=== PATIENT | female | born 1955 | race Caucasian/White ===

== ENCOUNTER 2019-01-02 15:50 | Emergency (ER) | payer BC ==
[~2019-01-02 15:50] MED LIST: AMOX1TAB63 PO; ASPI-655 PO; ATOR20TA PO; CEPH-350 PO; CLOP75TA PO; ESOM40CA PO; ESTR0.3T PO; FAMO-75 PO; LEFL20TA PO; LEVO88TA5 PO; LISI10TA2 PO; METO50TA4 PO; ONDA4TAB10 PO; PRED2.5T PO; TICA90TA PO; TOCI162S SQ; VENL150C PO; VENL150C6 PO; [UNRECOGNIZED DRUG - CODE] PO; [UNRECOGNIZED DRUG - CODE] PO
--- NOTE | 2019-01-02 15:50 | NUR ---
VS PLACED PATIENT ON ER MONITOR MONITOR AND UNABLE TO OBTAINE VITAL SIGNS BECAUSE PATIENT WILL NOT HOLD STILL AND KEEPS YELLING AND SCREAMING.
[2019-01-02] MEDS ORDERED: MORPHINE SULFATE ONE (16:21)
[2019-01-02] MEDS ORDERED: MORPHINE SULFATE IV ONE (16:30)
--- NOTE | 2019-01-02 16:30 | NUR ---
UPDATE PATIENT CONTINUES TO YELL AND SCREAM AND WILL NOT HOLD STILL. DIFFICULT TO OBTAIN INFORMATION FROM PATIENT.
[2019-01-02 16:37] LABS: BASOPHIL % 0.1 % (0.0-0.2); LYMPHOCYTES # 0.9 10^3/uL (1.0-4.8); LYMPHOCYTES % 5.5 % (24.0-44.0); MEAN CORP HGB 32.6 pg (26-34); MONOCYTES # 0.4 10^3/uL (0.3-0.8); MONOCYTES % 2.6 % (5.0-12.0); NEUTROPHILS % 91.5 % (41.0-85.0); RED CELL DISTRIBUTION WIDTH 17.8 % (11.5-14.5)
[2019-01-02 16:50] VITALS: BP 140/62
[2019-01-02 16:52] LABS: CALCIUM 11.4 mg/dL (8.4-10.5); CARBON DIOXIDE 22.9 mmol/L (20.0-32)
--- NOTE | 2019-01-02 17:00 | NUR ---
UPDATE DR. BALDWIN CALLED TO TALK WITH PCP DR. BOONE PER PATIENT REQUEST.
[2019-01-02 17:50] VITALS: BP 125/65
[2019-01-02 18:20] VITALS: BP 121/55
--- NOTE | 2019-01-02 18:45 | NUR ---
DR CARLOS GONZALEZ TO BEDSIDE BRIEFLY
--- NOTE | 2019-01-02 19:24 | NUR ---
RAD PT BACK FROM CT
--- NOTE | 2019-01-02 19:29 | ER.PDOC ---
General Chief Complaint: Requesting Medical Care Stated Complaint: AMS Time seen by MD: 20:35 Source: patient, family Exam Limitations: no limitations History of Present Illness Initial Comments Pt's spouse called EMS for altered mental status, has been "incoherent" for the last 2 days. Pt has been up and eating some, but has been mumbling. Seen by PMD a few days ago and had Morphine dose increased for back/leg pain. Pt was given Narcan and immediately became alert and began crying, c/o pain in back and legs. Character of AMS: other Usually: orientedx3 Associated Symptoms: back pain Prior symptoms/Treatment: Similar symptoms previous (back pain for months/years), Recenly Seen, Treated by Doctor Allergies: Coded Allergies: iodine (Verified Allergy, Unknown, FLUSH AND BREAK OUT, 11/20/16) PT WAS TOLD THAT IT WAS A NATURAL RESPONE Home Meds Active Scripts Ticagrelor (BRILINTA) 90 Mg Tablet, 90 MG PO BID for PCI, #180 TABLET 3 Refills Prov:EDUARDA BARAJAS NP 11/22/16 Metoprolol Succinate (TOPROL XL) 50 Mg Tab.er.24h, 50 MG PO DAILY, #30 3 Refills Prov:MURIEL HERRING MD 09/10/15 Atorvastatin 20MG (LIPITOR 20MG) 20 Mg Tablet, 40 MG PO HS, #30 TABLET 3 Refills Prov:MURIEL HERRING MD 09/10/15 Reported Medications Tocilizumab (Actemra) 162 Mg/0.9 Ml Syringe, 162 MG SQ Q7D, SYRINGE 11/20/16 Amoxicillin/Potassium Clav (AUGMENTIN 875-125 TABLET) 1 Each Tablet, 1 TAB PO BID, #14 TAB 11/20/16 Venlafaxine Hcl (EFFEXOR XR) 150 Mg Cap.er.24h, 1 CAP PO DAILY, #30 CAP 1 Refill 01/16/16 Ondansetron (ZOFRAN ODT) 4 Mg Tab.rapdis, 4 MG PO Q4HR PRN for NAUSEA AND VOMITING 01/15/16 Hydrocodone Bit/Acetaminophen (HYDROCODON-ACETAMINOPH 7.5-300) 1 Each Tablet, 1 EACH PO Q4HR PRN for PAIN 5 - 7, TABLET 01/15/16 Metaxalone (SKELAXIN) 800 Mg Tablet, 1 TAB PO QID PRN for MUSCLE SPASM, #90 TAB 01/15/16 Esomeprazole Magnesium (NEXIUM) 40 Mg Capsule.dr, 1 CAP PO DAILY, #90 CAP 3 Refills 09/07/15 Lisinopril (LISINOPRIL) 10 Mg Tablet, 1 TAB PO DAILY, #90 TAB 3 Refills 09/07/15 Estrogens, Conjugated (PREMARIN) 0.3 Mg Tablet, 1 TAB PO DAILY, #30 TAB 11 Refills 12/12/14 Levothyroxine Sodium (LEVOTHYROXINE SODIUM) 88 Mcg Tablet, 1 TAB PO DAILY, #30 TAB 5 Refills 12/12/14 Prednisone (PREDNISONE) 2.5 Mg Tablet, 2 TAB PO DAILY, #30 TAB 3 Refills 12/12/14 Leflunomide (ARAVA) 20 Mg Tablet, 1 TAB PO DAILY, #30 TAB 12/12/14 Past Medical History Medical History: hypertension, other Surgical History: colon, hysterectomy LMP (females 10-50): Menopause Family History Significant Family History: no pertinent family hx Review of Systems Constitutional: denies chills, denies fever Eyes: no symptoms reported Ears, Nose, Mouth, Throat: no symptoms reported Respiratory: no symptoms reported Gastrointestinal: no symptoms reported Genitourinary: no symptoms reported Musculoskeletal: back pain (with b/l leg pain), joint pain (chronic) Skin: no symptoms reported Psychiatric/Neurological: see HPI; denies headache; other (no wekaness/numbness) Endocrine: no symptoms reported All Other Systems: Reviewed and Negative Physical Exam General Appearance: alert, other (wailing, crying) HEENT: no apparent trauma, PERRL Neuro/Psych: abnml speech (incomplete sentences, some word fragments, some non- sensical phrases) Cranial Nerves: other (pt uncooperative) Cerebellar: other (pt uncooperative, though moves limbs purposefully without any apparent dysfunction) Peripheral Exam: other (no gross motor deficit or sensory loss) Neck: supple Respiratory: no resp distress CVS: tachycardia Abdomen: non-tender Extremities: non-tender Comments Tenderness along entire low back, both midline and laterally. Results/Orders Results/Orders Orders - MELLISA BALDWIN DO Morphine Sulfate (Morphine Sulfate) (01/02/19 16:30) Cbc With Auto Diff (01/02/19 16:17) Comprehensive Metabolic Panel (01/02/19 16:17) Creatine Kinase (01/02/19 16:17) Ct Head Wo Contrast (01/02/19 16:17) Morphine Sulfate (Morphine Sulfate) (01/02/19 16:21) Ct Lumbar W/Contrast (01/02/19 17:48) Blood Culture (01/02/19 21:01) Piperacillin Sodium/Tazobactam (Zosyn 3. (01/03/19 00:00) 0.9 % Sodium Chloride (Ns 100ml) (01/02/19 21:22) 0.9 % Sodium Chloride (Ns 1000ml) (01/02/19 21:27) Vital Signs Date Time Temp Pulse Resp B/P (MAP) Pulse Ox O2 Delivery O2 Flow Rate FiO2 01/02/19 19:32 113 142/66 (91) 95 Nasal [place] 2.00 01/02/19 18:20 115 20 121/55 (77) 97 Nasal [place] 2.00 01/02/19 17:50 119 22 125/65 (85) 92 Nasal [place] 2.00 01/02/19 16:50 98.7 90 22 01/02/19 16:50 98.7 115 22 140/62 (88) 96 Nasal [place] 2.00 Administered Medications Medications (Trade) Dose Ordered Sig/Beena Route PRN Reason Start Time Stop Time Status Last Admin Dose Admin Morphine Sulfate (Morphine Sulfate) 4 mg OT ONCE IV 01/02/19 16:30 01/02/19 16:31 DC 01/02/19 16:30 4 MG Piperacillin Sod/ Tazobactam Sod 3.375 gm/Sodium Chloride 100 ml @ 100 mls/hr Q6 IV 01/03/19 00:00 01/03/19 00:59 DC 01/02/19 21:45 100 MLS/HR Laboratory Tests Test 01/02/19 16:29 01/02/19 16:43 White Blood Count 16.4 10^3/uL (4.5-11.0) H Red Blood Count 3.53 10^6/uL (4.00-5.20) L Hemoglobin 11.5 g/dL (12.0-15.0) L Hematocrit 34.2 % (36.0-46.0) L Mean Corpuscular Volume 96.9 fL (78-100) Mean Corpuscular Hemoglobin 32.6 pg (26-34) Mean Corpuscular Hemoglobin Concent 33.6 g/dL (33-37) Red Cell Distribution Width 17.8 % (11.5-14.5) H Platelet Count 275 10^3/uL (150-400) Mean Platelet Volume 10.1 fL (7.8-11.0) Neutrophils (%) (Auto) 91.5 % (41.0-85.0) *H Lymphocytes (%) (Auto) 5.5 % (24.0-44.0) *L Monocytes (%) (Auto) 2.6 % (5.0-12.0) L Neutrophils # (Auto) 15.0 10^3/uL (1.8-7.7) H Lymphocytes # (Auto) 0.9 10^3/uL (1.0-4.8) L Monocytes # (Auto) 0.4 10^3/uL (0.3-0.8) Absolute Immature Granulocyte (auto 0.05 10^3 u/L (0-2) Immature Granulocytes % 0.30 % (0.00-0.50) Eosinophils % 0.0 % (0.0-5.0) Basophils % 0.1 % (0.0-0.2) Basophils # 0.0 10^3/uL (0.0-0.1) Eosinophil Count 0.0 10^3/uL (0.0-0.2) Sodium Level 139 mmol/L (132-145) Potassium Level 4.9 mmol/L (3.6-5.2) Chloride Level 103.0 mmol/L (96-109) Carbon Dioxide Level 22.9 mmol/L (20.0-32) Anion Gap 18.0 Blood Urea Nitrogen 32 mg/dL (7-18) H Creatinine 1.22 mg/dL (0.59-1.40) Estimated GFR () 53.9 (>/=60) BUN/Creatinine Ratio 26.0 Glucose Level 158 mg/dL (70-110) H Calcium Level 11.4 mg/dL (8.4-10.5) H Total Bilirubin 0.3 mg/dL (0.2-1.0) Aspartate Amino Transferase (AST) 59 U/L (0-35) H Alanine Aminotransferase (ALT) 27 U/L (12-78) Alkaline Phosphatase 62 U/L (50-136) Total Creatine Kinase 460 U/L (26-192) H Total Protein 6.1 g/dL (6.4-8.2) L Albumin 2.6 g/dL (3.4-5.0) L Globulin 3.5 Differential Total Cells Counted 100 #CELLS Segmented Neutrophils 90 % (31-76) H Band Neutrophils 2 % (2-6) Lymphocytes 3 % (25-36) L Monocytes 5 % (3-9) Platelet Estimate ADEQUATE Platelet Morphology NORMAL Blood Morphology Comment NORMAL MORPHOLOGY Progress Progress Pt much calmer after Morphine given as the Narcan appeared to cause an acute opioid withdrawal. I spoke with and pt's PCP, who sent labs drawn earlier this week. Pt has elevated ESR and CRP. No fever reported. Pt reportedly needed IV hydration at her home, which was given by her PCP. 2055 -- I reexamined the pt again after her CT. She has continued abnormal speech that appears fairly c/w expressive aphasia. Concern for CVA that started several days ago. Spoke with family and their wishes are to be transferred to [place] at [facility]. Spoke with Dr. Sequeira here and he agrees with transfer for Neurosurgical availability. Will likely need MRI of spine and brain. Spoke with [facility] and accepted to ER by Dr. Parada. Due to elevated WBC as well as recently elevated ESR and CRP done by PMD 4 days ago, will take blood cultures and start abx her in case of potential infection as pt is immunocompromised. Departure Time of Disposition: 20:59 Disposition: 70 DISC/XFER TO ANOTH TYP HLTH Impression: Primary Impression: Intractable low back pain Additional Impression: Expressive aphasia Condition: Stable Referrals: ALLY BOONE MD (PCP) PRIMARY CARE PROVIDER Duration or Time Spent with Pa: 65 Problem Qualifiers MELLISA BALDWIN DO Jan 02, 2019 19:29
[2019-01-02 19:32] VITALS: BP 142/66
--- NOTE | 2019-01-02 19:50 | DIREP ---
PROCEDURE:CT SPINE LUMBAR W/CONTRAST COMPARISON:[facility], CT, CT SPINE LUMBAR W/CONTRAST, 07/18/2018, 10:44 AM. INDICATIONS:back/leg pain TECHNIQUE:After obtaining the patient's consent, multi-planar CT images were created without and with non-ionic intravenous contrast material. FINDINGS: Alignment coal convex left lumbar scoliosis with spondylosis, multiple levels. Scoliosis is 17.8 using the superior endplate of L1 and the inferior endplate of L3. There is spondylolisthesis of L4 on 5 with posterior fusion using pedicle screws and vertical rods. Intervertebral spacer is also been placed at L4-5 although there is complete loss of the disc space and spondylolisthesis, unchanged from 07/18/2018. PARASPINAL AREA:Normal. BONES:Sclerosis inferior endplate of L1 with hypertrophic changes, sclerosis vertebral body of L2, sclerosis superior portion of the L3 vertebral body with endplate changes and osteophytes. Posterior fusion L4-5. Spondylolisthesis of L4 on L5, narrowing of the L5-S1 intervertebral disc space, unchanged LUMBAR DISC LEVELS L1-L2:Calcification in right lateral recess with a small amount of evolved nitrogen may represent sequela from facet arthropathy. The calcification in the lateral recesses unchanged.. L2-L3:Calcification midline ventral to the thecal sac. Possible retained contrast within the thecal sac, left side of the canal. Laminectomy L3-L4:Broad-based disc bulge, reduced ventral convexity of the thecal sac. Normal epidural fat in the lateral recesses. L4-L5:Fused section, omar laminotomy left. Intervertebral spacer, loss of intervertebral disc space L5-S1:Loss of intervertebral disc space. No significant disc bulge. Normal epidural fat CONCLUSION:Spondylosis multiple levels with scoliosis. Multiple laminectomies. Dorsal fusion L4-5 with fixed spondylolisthesis of L4 on L5. Intervertebral spacer L4-5. Dictated by: Romaine Umana MD on 01/02/2019 at 07:31 PM
--- NOTE | 2019-01-02 19:51 | DIREP ---
PROCEDURE:CT HEAD OR BRAIN W/O CONTRAST COMPARISON:None. INDICATIONS:altered level of awareness TECHNIQUE:CT images were created without intravenous contrast. FINDINGS: VENTRICLES:The ventricles are normal in size and configuration. CEREBRUM:Normal cerebral morphology with appropriate alberto white matter differentiation. CEREBELLUM:Negative. BRAINSTEM:Negative. BASAL CISTERNS:Negative. HEMORRHAGE:No MASS LESION:No ACUTE INFARCT:No SKULL:Normal. SINUSES:Normal. OTHER:None CONCLUSION:No hemorrhage, mass effect, or extra-axial fluid collection. Dictated by: Romaine Umana MD on 01/02/2019 at 07:49 PM
[2019-01-02] MEDS ORDERED: NS 100ML 100 ML IV ONE (21:22)
[2019-01-02] MEDS ORDERED: NS 1000ML 1,000 ML ONE (21:27)
--- NOTE | 2019-01-02 22:30 | NUR ---
[facility] EMS STATES [facility] IS EN ROUTE TO TRANSPORT PT DUE TO [employer] COVERAGE
[2019-01-02 23:21] LABS: BAND NEUTROPHILS 2 % (2-6); LYMPHOCYTE 3 % (25-36); MONOCYTE 5 % (3-9); SEGMENTED NEUTROPHILS 90 % (31-76)
--- NOTE | 2019-01-02 23:48 | NUR ---
LIFESTAR LIFESTAR ON THE PHONE WITH THIS NURSE. ATTEMPTING TO OBTAIN TRANSPORT BY GROUND.
[2019-01-03] MEDS ORDERED: ZOSYN 3.375 GM 3.375 GM in NS 100ML 100 ML IV SCH ×2
--- NOTE | 2019-01-03 00:05 | NUR ---
EMS CARE TRANSFERRED TO [facility]. REPORT GIVEN. PT AWAKE, ALERT. CONT TO SPEAK IN [place] BUT NO DISTRESS NOTED.
--- NOTE | 2019-01-03 00:55 | NUR ---
REPORT REPORT CALLED TO [facility]
== END 2019-01-03 00:07 | disposition other institution (70) ==
LOC: ER 15:50 → EDBD 15:50 → ER 01-03 00:07
DX: M54.5 Low back pain (principal); R47.01 Aphasia; I10 Essential (primary) hypertension; R41.82 Altered mental status, unspecified; Z79.899 Other long term (current) drug therapy; Z88.8 Allergy status to other drugs, medicaments and biological substances; Z90.710 Acquired absence of both cervix and uterus
CPT/HCPCS: 36415; 70450; 72132; 80053; 82550; 85025; 87040 ×2; 96365; 96375; 99285; J2270; J2543; J7030; J7050 ×2; Q9967

== ENCOUNTER 2019-02-23 06:02 | Emergency (ER) | payer BC ==
[~2019-02-23] VITALS: Ht 167.6 cm; Wt 54.4 kg
[2019-02-23] MEDS ORDERED: KLONOPIN PO STA (06:13)
[2019-02-23] MEDS ORDERED: KLONOPIN ONE (06:15)
--- NOTE | 2019-02-23 06:16 | ER.PDOC ---
General Chief Complaint: Requesting Medical Care Stated Complaint: WEAKNESS TRAVEL OUT OF US: No Time seen by MD: 06:14 Source: patient Exam Limitations: no limitations History of Present Illness Initial Comments Feeling shaky this since yesterday. No chest pain or SOB. No nausea or vomiting. Patient has carpal tunnel surgery planned for tomorrow. Severity: moderate Associated Symptoms: denies symptoms Allergies: Coded Allergies: baclofen (Verified Allergy, Unknown, 02/23/19) iodine (Verified Allergy, Unknown, FLUSH AND BREAK OUT, 11/20/16) PT WAS TOLD THAT IT WAS A NATURAL RESPONE Home Meds Active Scripts Ticagrelor (BRILINTA) 90 Mg Tablet, 90 MG PO BID for PCI, #180 TABLET 3 Refills Prov:EDUARDA BARAJAS RENDERER 11/22/16 Metoprolol Succinate (TOPROL XL) 50 Mg Tab.er.24h, 50 MG PO DAILY, #30 3 Refills Prov:MURIEL HERRING MD 09/10/15 Atorvastatin 20MG (LIPITOR 20MG) 20 Mg Tablet, 40 MG PO HS, #30 TABLET 3 Refills Prov:MURIEL HERRING MD 09/10/15 Reported Medications Tocilizumab (Actemra) 162 Mg/0.9 Ml Syringe, 162 MG SQ Q7D, SYRINGE 11/20/16 Amoxicillin/Potassium Clav (AUGMENTIN 875-125 TABLET) 1 Each Tablet, 1 TAB PO BID, #14 TAB 11/20/16 Venlafaxine Hcl (EFFEXOR XR) 150 Mg Cap.er.24h, 1 CAP PO DAILY, #30 CAP 1 Refill 01/16/16 Ondansetron (ZOFRAN ODT) 4 Mg Tab.rapdis, 4 MG PO Q4HR PRN for NAUSEA AND VOMITING 01/15/16 Hydrocodone Bit/Acetaminophen (HYDROCODON-ACETAMINOPH 7.5-300) 1 Each Tablet, 1 EACH PO Q4HR PRN for PAIN 5 - 7, TABLET 01/15/16 Metaxalone (SKELAXIN) 800 Mg Tablet, 1 TAB PO QID PRN for MUSCLE SPASM, #90 TAB 01/15/16 Esomeprazole Magnesium (NEXIUM) 40 Mg Capsule.dr, 1 CAP PO DAILY, #90 CAP 3 Refills 09/07/15 Lisinopril (LISINOPRIL) 10 Mg Tablet, 1 TAB PO DAILY, #90 TAB 3 Refills 09/07/15 Estrogens, Conjugated (PREMARIN) 0.3 Mg Tablet, 1 TAB PO DAILY, #30 TAB 11 Refills 12/12/14 Levothyroxine Sodium (LEVOTHYROXINE SODIUM) 88 Mcg Tablet, 1 TAB PO DAILY, #30 TAB 5 Refills 12/12/14 Prednisone (PREDNISONE) 2.5 Mg Tablet, 2 TAB PO DAILY, #30 TAB 3 Refills 12/12/14 Leflunomide (ARAVA) 20 Mg Tablet, 1 TAB PO DAILY, #30 TAB 12/12/14 Past Medical History Medical History: hypertension, other Surgical History: colon, hysterectomy Review of Systems Constitutional: no symptoms reported Respiratory: no symptoms reported Cardiovascular: no symptoms reported Gastrointestinal: no symptoms reported Genitourinary: no symptoms reported All Other Systems: Reviewed and Negative Physical Exam General Appearance: No Apparent Distress, WD/WN, Anxious Neck: Non-Tender, Full Range of Motion, Supple, Normal Inspection Respiratory: chest non-tender, lungs clear, normal breath sounds, no respiratory distress CVS: reg rate & rhythm, no murmur, no gallop, pulses nml, nml capillary refill, tachycardia Gastrointestinal: Normal Bowel Sounds, No Organomegaly, No Pulsatile Mass, Non Tender Back: Normal Inspection Extremities: Normal Range of Motion Neurologic/Psychiatric: occupational therapist assistants II-XII NML as Tested Skin: Normal Color Results/Orders Results/Orders Orders - SOLITARIO HERNANDES MD Thyroid Stimulating Horm(Ml) (02/23/19 07:42) Start Iv (02/23/19 07:59) 0.9 % Sodium Chloride (Ns 1000ml) (02/23/19 08:00) 0.9 % Sodium Chloride (Ns 1000ml) (02/23/19 08:00) Vital Signs Date Time Temp Pulse Resp B/P (MAP) Pulse Ox O2 Delivery O2 Flow Rate FiO2 02/23/19 06:17 97.9 102 16 99 02/23/19 06:17 97.9 102 16 133/69 (90) 99 Room Air 02/23/19 06:17 97.9 102 16 Administered Medications Medications (Trade) Dose Ordered Sig/Beena Route PRN Reason Start Time Stop Time Status Last Admin Dose Admin Clonazepam (Klonopin) 0.5 mg STAT STAT PO 02/23/19 06:13 02/23/19 06:14 DC 02/23/19 06:19 0.5 MG Sodium Chloride 1,000 ml @ 0 mls/hr Q0M ONCE IV 02/23/19 08:00 02/23/19 08:01 DC 02/23/19 08:14 1,000 MLS/HR Laboratory Tests Test 02/23/19 06:20 02/23/19 06:25 02/23/19 06:37 02/23/19 07:10 White Blood Count 13.0 10^3/uL (4.5-11.0) H Red Blood Count 3.44 10^6/uL (4.00-5.20) L Hemoglobin 11.2 g/dL (12.0-15.0) L Hematocrit 33.7 % (36.0-46.0) L Mean Corpuscular Volume 98.0 fL (78-100) Mean Corpuscular Hemoglobin 32.6 pg (26-34) Mean Corpuscular Hemoglobin Concent 33.2 g/dL (33-37) Red Cell Distribution Width 20.4 % (11.5-14.5) H Platelet Count 193 10^3/uL (150-400) Mean Platelet Volume 10.3 fL (7.8-11.0) Neutrophils (%) (Auto) 90.5 % (41.0-85.0) *H Lymphocytes (%) (Auto) 4.8 % (24.0-44.0) *L Monocytes (%) (Auto) 4.3 % (5.0-12.0) L Neutrophils # (Auto) 11.8 10^3/uL (1.8-7.7) H Lymphocytes # (Auto) 0.6 10^3/uL (1.0-4.8) L Monocytes # (Auto) 0.6 10^3/uL (0.3-0.8) Absolute Immature Granulocyte (auto 0.03 10^3 u/L (0-2) Immature Granulocytes % 0.20 % (0.00-0.50) Eosinophils % 0.1 % (0.0-5.0) Basophils % 0.1 % (0.0-0.2) Basophils # 0.0 10^3/uL (0.0-0.1) Eosinophil Count 0.0 10^3/uL (0.0-0.2) Sodium Level 135 mmol/L (132-145) Potassium Level 3.9 mmol/L (3.6-5.2) Chloride Level 100.0 mmol/L (96-109) Carbon Dioxide Level 24.0 mmol/L (20.0-32) Anion Gap 14.9 Blood Urea Nitrogen 31 mg/dL (7-18) H Creatinine 0.97 mg/dL (0.59-1.40) Estimated GFR () 70.2 (>/=60) BUN/Creatinine Ratio 31.0 Glucose Level 216 mg/dL (70-110) H Calcium Level 8.5 mg/dL (8.4-10.5) Total Bilirubin 0.3 mg/dL (0.2-1.0) Aspartate Amino Transferase (AST) 15 U/L (0-35) Alanine Aminotransferase (ALT) 25 U/L (12-78) Alkaline Phosphatase 63 U/L (50-136) Total Protein 5.3 g/dL (6.4-8.2) L Albumin 2.8 g/dL (3.4-5.0) L Globulin 2.5 Total Creatine Kinase 29 U/L (26-192) Troponin I 0.03 ng/mL (0.00-0.05) Thyroid Stimulating Hormone (TSH) 1.857 mIU/mL (0.358-3.740) Differential Total Cells Counted 100 #CELLS Segmented Neutrophils 94 % (31-76) H Lymphocytes 3 % (25-36) L Monocytes 3 % (3-9) Platelet Estimate ADEQUATE Platelet Morphology NORMAL Anisocytosis 2+ (NEGATIVE) Urine Collection Type UNKNOWN Urine Color YELLOW (YELLOW) Urine Appearance HAZY (CLEAR) H Urine Bilirubin NEGATIVE MG/DL (NEGATIVE) Urine Ketones NEGATIVE (NEGATIVE) Urine Specific [place] 1.010 (1.005-1.035) Urine pH 9 (5.0-6.0) Urine Protein NEGATIVE (NEGATIVE) Urine Urobilinogen NORMAL (NEGATIVE) Urine Nitrate NEGATIVE (NEGATIVE) Urine Leukocyte Esterase 500/uL 2+ (NEGATIVE) Urine Blood NEGATIVE (NEGATIVE) Urine RBC NONE SEEN RBC/HPF (NONE Urine WBC TNTC WBC/HPF (0-2) H Urine Squamous Epithelial Cells FEW #/HPF (FEW) Urine Bacteria FEW (NONE SEEN) H Urine Glucose 1000 (NEGATIVE) H Progress Progress Care of patient transferred to Dr. Hernandes at 7am 0859: Spoke at length with patient and spouse. Also spoke by phone with Dr. House. Pt doing better after IVF and Klonopin. Suspect anxiety reaction, but suspicious of medication interactions given med list. Dr. House concurs and agrees to see pt MINI to evaluate and modify if necessary her medications. Course Sepsis Screening Results: Posi: POSITIVE SEPSIS RISK Duration or Total Time Spent w: 65 Vitals & review Data Vital Sign - Last 24 Hours 02/23/19 02/23/19 02/23/19 06:17 06:17 06:17 Temp 97.9 97.9 97.9 Pulse 102 102 102 Resp 16 16 16 B/P (MAP) 133/69 (90) Pulse Ox 99 99 O2 Delivery Room Air Laboratory Tests Test 02/23/19 06:20 02/23/19 06:25 02/23/19 06:37 02/23/19 07:10 White Blood Count 13.0 10^3/uL Red Blood Count 3.44 10^6/uL Hemoglobin 11.2 g/dL Hematocrit 33.7 % Mean Corpuscular Volume 98.0 fL Mean Corpuscular Hemoglobin 32.6 pg Mean Corpuscular Hemoglobin Concent 33.2 g/dL Red Cell Distribution Width 20.4 % Platelet Count 193 10^3/uL Mean Platelet Volume 10.3 fL Neutrophils (%) (Auto) 90.5 % Lymphocytes (%) (Auto) 4.8 % Monocytes (%) (Auto) 4.3 % Neutrophils # (Auto) 11.8 10^3/uL Lymphocytes # (Auto) 0.6 10^3/uL Monocytes # (Auto) 0.6 10^3/uL Absolute Immature Granulocyte (auto 0.03 10^3 u/L Immature Granulocytes % 0.20 % Eosinophils % 0.1 % Basophils % 0.1 % Basophils # 0.0 10^3/uL Eosinophil Count 0.0 10^3/uL Sodium Level 135 mmol/L Potassium Level 3.9 mmol/L Chloride Level 100.0 mmol/L Carbon Dioxide Level 24.0 mmol/L Anion Gap 14.9 Blood Urea Nitrogen 31 mg/dL Creatinine 0.97 mg/dL Estimated GFR () 70.2 BUN/Creatinine Ratio 31.0 Glucose Level 216 mg/dL Calcium Level 8.5 mg/dL Total Bilirubin 0.3 mg/dL Aspartate Amino Transf (AST/SGOT) 15 U/L Alanine Aminotransferase (ALT/SGPT) 25 U/L Alkaline Phosphatase 63 U/L Total Protein 5.3 g/dL Albumin 2.8 g/dL Globulin 2.5 Total Creatine Kinase 29 U/L Troponin I 0.03 ng/mL Thyroid Stimulating Hormone (TSH) 1.857 mIU/mL Differential Total Cells Counted 100 #CELLS Segmented Neutrophils 94 % Lymphocytes 3 % Monocytes 3 % Platelet Estimate ADEQUATE Platelet Morphology NORMAL Anisocytosis 2+ Urine Collection Type UNKNOWN Urine Color YELLOW Urine Appearance HAZY Urine Bilirubin NEGATIVE MG/DL Urine Ketones NEGATIVE Urine Specific [place] 1.010 Urine pH 9 Urine Protein NEGATIVE Urine Urobilinogen NORMAL Urine Nitrate NEGATIVE Urine Leukocyte Esterase 500/uL 2+ Urine Blood NEGATIVE Urine RBC NONE SEEN RBC/HPF Urine WBC TNTC WBC/HPF Urine Squamous Epithelial Cells FEW #/HPF Urine Bacteria FEW Urine Glucose 1000 Departure Time of Disposition: 09:02 Disposition: 01 HOME, SELF-CARE Impression: Primary Impression: Anxiety Additional Impression: Adverse drug interaction with prescription medication Condition: Stable Referrals: ALLY HOUSE MD (PCP) PRIMARY CARE PROVIDER Additional Instructions: Rx Ativan, Follow up with Dr. House MINI Duration or Time Spent with Pa: 20 Problem Qualifiers SABRINA RUEDA MD Feb 23, 2019 06:16 SOLITARIO HERNANDES MD Feb 23, 2019 09:03
[2019-02-23 06:17] VITALS: BP 133/69
[2019-02-23 06:27] LABS: BASOPHIL % 0.1 % (0.0-0.2); EOSINOPHIL % 0.1 % (0.0-5.0); HEMOGLOBIN 11.2 g/dL (12.0-15.0); LYMPHOCYTES # 0.6 10^3/uL (1.0-4.8); LYMPHOCYTES % 4.8 % (24.0-44.0); MEAN CELL HGB 32.6 pg (26-34); MEAN CELL HGB CONCENTRATION 33.2 g/dL (33-37); MEAN PLATELET VOLUME 10.3 fL (7.8-11.0); MONOCYTES # 0.6 10^3/uL (0.3-0.8); MONOCYTES % 4.3 % (5.0-12.0); NEUTROPHIL # 11.8 10^3/uL (1.8-7.7); NEUTROPHILS % 90.5 % (41.0-85.0); RED CELL DISTRIBUTION WIDTH 20.4 % (11.5-14.5)
--- NOTE | 2019-02-23 06:28 | PCM.EKG ---
[facility] Test Date: 2019-02-23 Test Time: 06:25:56 Pat Name: OSVALDO BAHENA Department: Patient ID: [facility]-[id number] Room: Gender: F Package Dyer: STEVEN : 1955 Requested By: SABRINA RUEDA Order Number: [id number] Reading MD: Sabrina RUEDA Measurements Intervals [place] Rate: 98 P: 72 [place]: 148 QRS: -44 QRSD: 75 T: 61 QT: 332 QTc: 424 Interpretive Statements Sinus rhythm Left atrial enlargement Left anterior fascicular block Probable anteroseptal infarct, old No previous ECG available for comparison Electronically Signed On 02-23-2019 23:12:28 FOOD AND BEVERAGE ASSISTANT by Sabrina RUEDA Please click the below link to view image of tracing.
[2019-02-23 06:41] LABS: CALCIUM 8.5 mg/dL (8.4-10.5)
[2019-02-23 06:45] VITALS: BP 112/62
[2019-02-23 07:17] LABS: BILIRUBIN,URINE NEGATIVE (NEGATIVE); UROBILINOGEN,URINE NORMAL (NEGATIVE)
[2019-02-23 07:26] LABS: APPEARANCE,URINE HAZY (CLEAR); UA COLOR YELLOW (YELLOW)
[2019-02-23] MEDS ORDERED: NS 1000ML 1,000 ML IV ONE (08:00)
[2019-02-23] MEDS ORDERED: NS 1000ML 1,000 ML ONE (08:00)
[2019-02-23 08:09] LABS: ANISOCYTOSIS 2+ (NEGATIVE); LYMPHOCYTE 3 % (25-36); MONOCYTE 3 % (3-9); SEGMENTED NEUTROPHILS 94 % (31-76)
--- NOTE | 2019-02-23 08:15 | NUR ---
ns bolus started at this time.
[2019-02-23 08:30] VITALS: BP 131/65
== END 2019-02-23 09:20 | disposition home or self-care (01) ==
LOC: ER 06:02
DX: F41.9 Anxiety disorder, unspecified (principal); T42.4X5A Adverse effect of benzodiazepines, initial encounter
CPT/HCPCS: 36415; 80053; 81000; 82550; 84443; 84484; 85025; 87077; 87086; 87186; 93005; 99284; J7030

== ENCOUNTER 2019-03-19 14:21 | Emergency (ER) | payer BC ==
[~2019-03-19] VITALS: Ht 167.6 cm; Wt 46.3 kg
[2019-03-19 14:31] VITALS: BP 149/67
[2019-03-19 14:36] VITALS: BP 149/67
--- NOTE | 2019-03-19 14:37 | NUR ---
ARRIVAL PATIENT ARRIVED TO ED6 VIA W/C WITH FAMILY, C/O OF NAUSEA,LEFT ELBOW DRAINAGE, AND WEAKNESS FOR THE PAST 4 DAYS, DID HAVE AN ELBOW SURGERY APPROX 3 WEEKS AGO, SMALL AMOUNT OF DRAINAGE NOTED ELBOW AREA, DID TAKE REGLAN AND [employer] SHIPYARD PAINTER, ATTEMPTED TO CALL HER SURGEON AND WAS TOLD IF SHE FELT WEAK TO COME TO THE ED FOR EVAL.
[2019-03-19] MEDS ORDERED: ZOFRAN 4 MG/2 ML VIAL IV STA (14:49)
[2019-03-19] MEDS ORDERED: NS 1000ML 1,000 ML STA (14:52)
--- NOTE | 2019-03-19 14:55 | ER.PDOC ---
General Chief Complaint: General Complaint Stated Complaint: WEAKNESS,POST OP CARE TRAVEL OUT OF US: No Time seen by MD: 14:44 Source: patient, family Exam Limitations: no limitations History of Present Illness Initial Comments patient c/o persistent nausea, unrelieved by reglan; she states she had ulnar tunnel release surgery 1 month ago and has been sick ever since; she reports 30 lb weight loss over the past month; she also states the numbness in her 3/4/5 digits of left hand has worsened since her surgery; she also c/o persistent drainage from surgical wound Timing/Duration: other (all of the symptoms listed in initial comments have been present x 1 month except nausea which has been intermittent and is worse today) Severity: moderate Associated Symptoms: nausea/vomiting Allergies: Coded Allergies: baclofen (Verified Allergy, Unknown, 02/23/19) iodine (Verified Allergy, Unknown, FLUSH AND BREAK OUT, 11/20/16) PT WAS TOLD THAT IT WAS A NATURAL RESPONE Home Meds Reported Medications Insulin Aspart (NOVOLOG) 100 Unit/1 Ml Insuln.pen, 100 UNIT SQ 1 PRN for SLIDING SCALE, UNIT 03/19/19 Metoprolol Tartrate 50MG (LOPRESSER 50MG) 50 Mg Tablet, 1 TAB PO DAILY24, #180 TAB 3 Refills 03/19/19 Mirtazapine (MIRTAZAPINE) 30 Mg Tablet, 1 TAB PO HS, #30 TAB 03/19/19 Ustekinumab (STELARA) 45 Mg/0.5 Ml Disp.syrin, 45 MG SQ EVERY 12 WEEKS, SYR 03/19/19 Ergocalciferol (Vitamin D2) (VITAMIN D2) 50,000 Unit Capsule, [id number] UNIT PO weekly, CAPSULE 03/19/19 Venlafaxine Hcl (VENLAFAXINE HCL ER) 75 Mg Cap.er.24h, 1 CAP PO DAILY, #30 CAP 03/19/19 Progesterone,Micronized (PROGESTERONE) 200 Mg Capsule, 1 CAP PO HS for 30 Days, #30 CAP 0 Refills 03/19/19 Pregabalin (LYRICA) 75 Mg Capsule, 1 CAP PO TID, #60 CAP 03/19/19 Lisinopril (LISINOPRIL) 20 Mg Tablet, 1 TAB PO HS, #90 TAB 3 Refills 03/19/19 Insulin Glargine,Hum.rec.anlog (LANTUS SOLOSTAR) 100 Unit/1 Ml Insuln.pen, 20 UNITS SQ HS, #15 MILLILITER 5 Refills 03/19/19 Finasteride (FINASTERIDE) 5 Mg Tablet, 1 TAB PO HS, #90 TAB 3 Refills 03/19/19 Atorvastatin 20MG (LIPITOR 20MG) 20 Mg Tablet, 1 TAB PO DAILY, #90 TAB 3 Refills 03/19/19 Thyroid,Pork (ARMOUR THYROID) 60 Mg Tablet, 1 TAB PO DAILY, #90 TAB 3 Refills 03/19/19 Lubiprostone (AMITIZA) 24 Mcg Capsule, 1 CAP PO BID for 30 Days, #60 CAP 0 Refills 03/19/19 Amitriptyline Hcl (AMITRIPTYLINE HCL) 10 Mg Tablet, 1 TAB PO HS, #30 TAB 3 Refills 03/19/19 Metoclopramide Hcl (REGLAN) 10 Mg Tablet, 1 TAB PO QID for 30 Days, #120 TAB 0 Refills before food and bedtime 03/19/19 Prednisone (PREDNISONE) 20 Mg Tablet, 1 TAB PO BID, #10 TAB 03/19/19 Esomeprazole Magnesium (NEXIUM) 40 Mg Capsule.dr, 40 MG PO BID, CAPSULE 03/19/19 Methotrexate Sodium/Pf (METHOTREXATE 25 MG/ML VIAL) 25 Mg/1 Ml Vial, 12.5 MG IJ 2 times weekly, VIAL 03/19/19 Folic Acid (Folic Acid) 0.8 Mg Capsule, 1 MG PO DAILY24, CAPSULE 03/19/19 Sitagliptin Phosphate (JANUVIA) 50 Mg Tablet, 1 TAB PO DAILY, #90 TAB 3 Refills 03/19/19 Sulfamethoxazole/Trimethoprim (BACTRIM DS TABLET) 1 Each Tablet, 1 TAB PO BID for 7 Days, #14 TAB 0 Refills 03/19/19 Spironolactone 50MG (ALDACTONE 50MG) 50 Mg Tablet, 1 TAB PO DAILY, #90 TAB 3 Refills 03/19/19 Ondansetron (ZOFRAN ODT) 4 Mg Tab.rapdis, 4 MG PO Q4HR PRN for NAUSEA AND VOMITING 01/15/16 Hydrocodone Bit/Acetaminophen (HYDROCODON-ACETAMINOPH 7.5-300) 1 Each Tablet, 1 EACH PO Q4HR PRN for PAIN 5 - 7, TABLET 01/15/16 Discontinued Reported Medications Tocilizumab (Actemra) 162 Mg/0.9 Ml Syringe, 162 MG SQ Q7D, SYRINGE 11/20/16 Amoxicillin/Potassium Clav (AUGMENTIN 875-125 TABLET) 1 Each Tablet, 1 TAB PO BID, #14 TAB 11/20/16 Venlafaxine Hcl (EFFEXOR XR) 150 Mg Cap.er.24h, 1 CAP PO DAILY, #30 CAP 1 Refill 01/16/16 Metaxalone (SKELAXIN) 800 Mg Tablet, 1 TAB PO QID PRN for MUSCLE SPASM, #90 TAB 01/15/16 Esomeprazole Magnesium (NEXIUM) 40 Mg Capsule.dr, 1 CAP PO DAILY, #90 CAP 3 Refills 09/07/15 Lisinopril (LISINOPRIL) 10 Mg Tablet, 1 TAB PO DAILY, #90 TAB 3 Refills 09/07/15 Estrogens, Conjugated (PREMARIN) 0.3 Mg Tablet, 1 TAB PO DAILY, #30 TAB 11 Refills 12/12/14 Levothyroxine Sodium (LEVOTHYROXINE SODIUM) 88 Mcg Tablet, 1 TAB PO DAILY, #30 TAB 5 Refills 12/12/14 Prednisone (PREDNISONE) 2.5 Mg Tablet, 2 TAB PO DAILY, #30 TAB 3 Refills 12/12/14 Leflunomide (ARAVA) 20 Mg Tablet, 1 TAB PO DAILY, #30 TAB 12/12/14 Discontinued Scripts Ticagrelor (BRILINTA) 90 Mg Tablet, 90 MG PO BID for PCI, #180 TABLET 3 Refills Prov:EDUARDA BARAJAS NP 11/22/16 Metoprolol Succinate (TOPROL XL) 50 Mg Tab.er.24h, 50 MG PO DAILY, #30 3 Refills Prov:MURIEL HERRING MD 09/10/15 Atorvastatin 20MG (LIPITOR 20MG) 20 Mg Tablet, 40 MG PO HS, #30 TABLET 3 Refills Prov:MURIEL HERRING MD 09/10/15 Past Medical History Medical History: diabetes, high cholesterol, hypertension, thyroid disease, other Surgical History: appendectomy, hysterectomy, other Social History Smoking: cigarettes Alcohol Use: none Drug Use: none Review of Systems Constitutional: weakness (generalized weakness; weight loss 30 lbs in 1 month) Respiratory: no symptoms reported Cardiovascular: no symptoms reported Gastrointestinal: nausea Musculoskeletal: see HPI Skin: other (chronic ecchymosis d/t ongoing steroid use) Psychiatric/Neurological: no symptoms reported Physical Exam General Appearance: No Apparent Distress, Thin Respiratory: chest non-tender, decreased breath sounds (lung bases bilaterally c/w her hx COPD) CVS: reg rate & rhythm Gastrointestinal: Normal Bowel Sounds Extremities: Swelling (there is swelling noted at left elbow but no warmth or erythema; distal pulses (radial and ulnar) are intact; 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 (03/19/19 14:49) Urinalysis (03/19/19 14:49) Saline Lock (03/19/19 14:49) C-Reactive Protein (03/19/19 14:49) Ondansetron Hcl/Pf (Zofran 4 Mg/2 Ml Via (03/19/19 14:49) Wound Culture & Gram Stain (03/19/19 14:49) 0.9 % Sodium Chloride (Ns 1000ml) (03/19/19 14:52) Thyroid Stimulating Horm(Ml) (03/19/19 14:55) Vital Signs Date Time Temp Pulse Resp B/P (MAP) Pulse Ox O2 Delivery O2 Flow Rate FiO2 03/19/19 14:36 98.3 80 16 149/67 (94) 94 Room Air 03/19/19 14:31 98.3 80 16 94 03/19/19 14:31 98.3 80 16 Administered Medications Medications (Trade) Dose Ordered Sig/Beena Route PRN Reason Start Time Stop Time Status Last Admin Dose Admin Ondansetron HCl (Zofran 4 Mg/2 ml Vial) 4 mg STAT STAT IV 03/19/19 14:49 03/19/19 14:50 UNV 03/19/19 15:16 4 MG Sodium Chloride 1,000 ml @ 0 mls/hr Q0M STAT IV 03/19/19 14:52 03/19/19 14:53 UNV 03/19/19 15:16 1,200 MLS/HR Laboratory Tests Test 03/19/19 14:49 03/19/19 15:00 Urine Collection Type VOID Urine Color YELLOW (YELLOW) Urine Appearance CLEAR (CLEAR) Urine Bilirubin NEGATIVE MG/DL (NEGATIVE) Urine Ketones NEGATIVE (NEGATIVE) Urine Specific [place] 1.015 (1.005-1.035) Urine pH 6 (5.0-6.0) Urine Protein NEGATIVE (NEGATIVE) Urine Urobilinogen NORMAL (NEGATIVE) Urine Nitrate NEGATIVE (NEGATIVE) Urine Leukocyte Esterase NEGATIVE (NEGATIVE) Urine Blood NEGATIVE (NEGATIVE) Urine Glucose 250 (NEGATIVE) H White Blood Count 3.7 10^3/uL (4.5-11.0) L Red Blood Count 2.86 10^6/uL (4.00-5.20) L Hemoglobin 9.4 g/dL (12.0-15.0) L Hematocrit 28.4 % (36.0-46.0) L Mean Corpuscular Volume 99.3 fL (78-100) Mean Corpuscular Hemoglobin 32.9 pg (26-34) Mean Corpuscular Hemoglobin Concent 33.1 g/dL (33-37) Red Cell Distribution Width 19.5 % (11.5-14.5) H Platelet Count 37 10^3/uL (150-400) L Mean Platelet Volume 11.1 fL (7.8-11.0) H Neutrophils (%) (Auto) 86.2 % (41.0-85.0) H Lymphocytes (%) (Auto) 11.9 % (24.0-44.0) L Monocytes (%) (Auto) 1.1 % (5.0-12.0) L Neutrophils # (Auto) 3.2 10^3/uL (1.8-7.7) Lymphocytes # (Auto) 0.4 10^3/uL (1.0-4.8) L Monocytes # (Auto) 0.0 10^3/uL (0.3-0.8) L Absolute Immature Granulocyte (auto 0.02 10^3 u/L (0-2) Absolute Eosinophils (auto) 0.0 10^3/uL (0.0-0.2) Immature Granulocytes % 0.50 % (0.00-0.50) Eosinophils % 0.3 % (0.0-5.0) Basophils % 0.0 % (0.0-0.2) Basophils # 0.0 10^3/uL (0.0-0.1) Prothrombin Time 9.9 SEC (9.4-11.5) Prothrombin Time INR (Non-Therap) 1.0 Activated Partial Thromboplast Time 20.8 SEC (24.67-30.72) Sodium Level 135 mmol/L (132-145) Potassium Level 4.5 mmol/L (3.6-5.2) Chloride Level 101.0 mmol/L (96-109) Carbon Dioxide Level 20.6 mmol/L (20.0-32) Anion Gap 17.9 Blood Urea Nitrogen 40 mg/dL (7-18) H Creatinine 1.22 mg/dL (0.59-1.40) Estimated GFR () 53.9 (>/=60) Est GFR (CKD-EPI)(Non-Afr [place]ese) 44.5 (>/=60) BUN/Creatinine Ratio 32.0 Glucose Level 233 mg/dL (70-110) H Calcium Level 9.1 mg/dL (8.4-10.5) Total Bilirubin 0.2 mg/dL (0.2-1.0) Aspartate Amino Transferase (AST) 15 U/L (0-35) Alanine Aminotransferase (ALT) 25 U/L (12-78) Alkaline Phosphatase 56 U/L (50-136) C-Reactive Protein 0.70 mg/dL (0.00-5.00) Total Protein 5.5 g/dL (6.4-8.2) L Albumin 3.1 g/dL (3.4-5.0) L Globulin 2.4 Amylase Level 69 U/L (25-115) Lipase 270 U/L (114-286) Thyroid Stimulating Hormone (TSH) 2.801 mIU/mL (0.358-3.740) Progress Progress labs reveal protein calorie malnutrition c/w patient's hx of 30 lb wt loss in past month; nausea controlled here with ondansetron (patient states 8mg of zofran at home ineffective); there is no evidence on exam or per lab of infection Course Sepsis Screening Results: Posi: POSITIVE SEPSIS RISK Duration or Total Time Spent w: 20 Vitals & review Data Vital Sign - Last 24 Hours 03/19/19 03/19/19 03/19/19 14:31 14:31 14:36 Temp 98.3 98.3 98.3 Pulse 80 80 80 Resp 16 16 16 B/P (MAP) 149/67 (94) Pulse Ox 94 94 O2 Delivery Room Air Laboratory Tests Test 03/19/19 14:49 03/19/19 15:00 Urine Collection Type VOID Urine Color YELLOW Urine Appearance CLEAR Urine Bilirubin NEGATIVE MG/DL Urine Ketones NEGATIVE Urine Specific [place] 1.015 Urine pH 6 Urine Protein NEGATIVE Urine Urobilinogen NORMAL Urine Nitrate NEGATIVE Urine Leukocyte Esterase NEGATIVE Urine Blood NEGATIVE Urine Glucose 250 White Blood Count 3.7 10^3/uL Red Blood Count 2.86 10^6/uL Hemoglobin 9.4 g/dL Hematocrit 28.4 % Mean Corpuscular Volume 99.3 fL Mean Corpuscular Hemoglobin 32.9 pg Mean Corpuscular Hemoglobin Concent 33.1 g/dL Red Cell Distribution Width 19.5 % Platelet Count 37 10^3/uL Mean Platelet Volume 11.1 fL Neutrophils (%) (Auto) 86.2 % Lymphocytes (%) (Auto) 11.9 % Monocytes (%) (Auto) 1.1 % Neutrophils # (Auto) 3.2 10^3/uL Lymphocytes # (Auto) 0.4 10^3/uL Monocytes # (Auto) 0.0 10^3/uL Absolute Immature Granulocyte (auto 0.02 10^3 u/L Absolute Eosinophils (auto) 0.0 10^3/uL Immature Granulocytes % 0.50 % Eosinophils % 0.3 % Basophils % 0.0 % Basophils # 0.0 10^3/uL Prothrombin Time 9.9 SEC Prothrombin Time INR (Non-Therap) 1.0 Activated Partial Thromboplast Time 20.8 SEC Sodium Level 135 mmol/L Potassium Level 4.5 mmol/L Chloride Level 101.0 mmol/L Carbon Dioxide Level 20.6 mmol/L Anion Gap 17.9 Blood Urea Nitrogen 40 mg/dL Creatinine 1.22 mg/dL Estimated GFR () 53.9 Est GFR (CKD-EPI)(Non-Afr [place]ese) 44.5 BUN/Creatinine Ratio 32.0 Glucose Level 233 mg/dL Calcium Level 9.1 mg/dL Total Bilirubin 0.2 mg/dL Aspartate Amino Transf (AST/SGOT) 15 U/L Alanine Aminotransferase (ALT/SGPT) 25 U/L Alkaline Phosphatase 56 U/L C-Reactive Protein 0.70 mg/dL Total Protein 5.5 g/dL Albumin 3.1 g/dL Globulin 2.4 Amylase Level 69 U/L Lipase 270 U/L Thyroid Stimulating Hormone (TSH) 2.801 mIU/mL Current Medications Medications (Trade) Dose Ordered Sig/Beena PRN Reason Start Time Stop Time Status Last Admin Ondansetron HCl (Zofran 4 Mg/2 ml Vial) 4 mg STAT STAT 03/19/19 14:49 03/19/19 14:50 UNV 03/19/19 15:16 Sodium Chloride 1,000 ml @ 0 mls/hr Q0M STAT 03/19/19 14:52 03/19/19 14:53 UNV 03/19/19 15:16 O2 Sat by Pulse Oximetry: 94 Departure Time of Disposition: 15:52 Disposition: 01 HOME, SELF-CARE Impression: Primary Impression: Nausea Additional Impressions: Weight loss, non-intentional Protein calorie malnutrition Condition: Improved (nausea resolved here with Ondansetron) Patient Instructions: Malnutrition, Nausea, Adult Referrals: ALLY BOONE MD (PCP) PRIMARY CARE PROVIDER Additional Instructions: Take phenergan every 4-6 hours as needed to control nausea. Do not try to eat a full meal--instead, graze continuously throughout the day. Choose protein rich foods. Follow up with Dr. Grace 1-2 days and maintain your ortho appointment next week. Return to ER if elbow becomes red/hot, if nausea persists and you continue to lose weight, or for any other concerns. Duration or Time Spent with Pa: 1 hour 15 minutes Problem Qualifiers Additional Impressions: Protein calorie malnutrition Protein-calorie malnutrition severity: mild Qualified Codes: E44.1 - Mild protein-calorie malnutrition BANDAR COLEMAN DO Mar 19, 2019 14:55
[2019-03-19] MEDS ORDERED: NS 1000ML 1,000 ML ONE (15:05)
[2019-03-19] MEDS ORDERED: ZOFRAN 4 MG/2 ML VIAL ONE (15:05)
[2019-03-19 15:09] LABS: EOSINOPHIL % 0.3 % (0.0-5.0); LYMPHOCYTES # 0.4 10^3/uL (1.0-4.8); LYMPHOCYTES % 11.9 % (24.0-44.0); MEAN CORP HGB 32.9 pg (26-34); MONOCYTES % 1.1 % (5.0-12.0); NEUTROPHIL # 3.2 10^3/uL (1.8-7.7); NEUTROPHILS % 86.2 % (41.0-85.0); RED CELL DISTRIBUTION WIDTH 19.5 % (11.5-14.5)
[2019-03-19 15:12] LABS: APPEARANCE,URINE CLEAR (CLEAR); BILIRUBIN,URINE NEGATIVE (NEGATIVE); UA COLOR YELLOW (YELLOW); UROBILINOGEN,URINE NORMAL (NEGATIVE)
[2019-03-19 15:21] LABS: CALCIUM 9.1 mg/dL (8.4-10.5); CARBON DIOXIDE 20.6 mmol/L (20.0-32)
[2019-03-19] MEDS ORDERED: ESOM40CA PO (15:23)
[2019-03-19] MEDS ORDERED: SITA50TA PO (15:23)
[2019-03-19] MEDS ORDERED: METH25VI9 IJ (15:23)
[2019-03-19] MEDS ORDERED: FOLI0.8C PO (15:23)
[2019-03-19] MEDS ORDERED: SULF1TAB24 PO (15:23)
[2019-03-19] MEDS ORDERED: AMIT10TA PO (15:23)
[2019-03-19] MEDS ORDERED: SPIR50TA PO (15:23)
[2019-03-19] MEDS ORDERED: PRED20TA PO (15:23)
[2019-03-19] MEDS ORDERED: METO10TA83 PO (15:23)
[2019-03-19] MEDS ORDERED: THYR60TA PO (15:45)
[2019-03-19] MEDS ORDERED: ATOR20TA PO (15:45)
[2019-03-19] MEDS ORDERED: PREG75CA PO (15:45)
[2019-03-19] MEDS ORDERED: FINA5TAB4 PO (15:45)
[2019-03-19] MEDS ORDERED: METO50TA6 PO (15:45)
[2019-03-19] MEDS ORDERED: INSU100I13 SQ (15:45)
[2019-03-19] MEDS ORDERED: LUBI24CA7 PO (15:45)
[2019-03-19] MEDS ORDERED: MIRT30TA4 PO (15:45)
[2019-03-19] MEDS ORDERED: [UNRECOGNIZED DRUG - CODE] PO (15:45)
[2019-03-19] MEDS ORDERED: VENL75CA6 PO (15:45)
[2019-03-19] MEDS ORDERED: USTE45DI SQ (15:45)
[2019-03-19] MEDS ORDERED: PROG200C9 PO (15:45)
[2019-03-19] MEDS ORDERED: LISI-410 PO (15:45)
[2019-03-19] MEDS ORDERED: INSU100I18 SQ (15:48)
[2019-03-19 15:49] VITALS: BP 96/45
== END 2019-03-19 16:04 | disposition home or self-care (01) ==
LOC: ER 14:21
DX: R11.2 Nausea with vomiting, unspecified (principal); E46 Unspecified protein-calorie malnutrition; R20.0 Anesthesia of skin; R53.1 Weakness; E11.9 Type 2 diabetes mellitus without complications; I10 Essential (primary) hypertension; E78.00 Pure hypercholesterolemia, unspecified; F17.210 Nicotine dependence, cigarettes, uncomplicated; Z79.899 Other long term (current) drug therapy; Z90.710 Acquired absence of both cervix and uterus; Z79.4 Long term (current) use of insulin; Z88.8 Allergy status to other drugs, medicaments and biological substances
CPT/HCPCS: 36415; 80053; 81002; 82150; 83690; 84443; 85025; 85610; 85730; 86140; 87070; 96361; 96374; 99284; J2405; J7030

== ENCOUNTER → 2019-06-09 | Outpatient (CLI) | payer BC ==
[~2019-06-09] MED LIST changes: +AMIT10TA PO; +FINA5TAB4 PO; +FOLI0.8C PO; +INSU100I13 SQ; +INSU100I18 SQ; +LISI-410 PO; +LUBI24CA7 PO; +METH25VI9 IJ; +METO10TA83 PO; +METO50TA6 PO; +MIRT30TA4 PO; +PRED20TA PO; +PREG75CA PO; +PROG200C9 PO; +SITA50TA PO; +SPIR50TA PO; +SULF1TAB24 PO; +THYR60TA PO; +USTE45DI SQ; +VENL75CA6 PO; +[UNRECOGNIZED DRUG - CODE] PO
== END | disposition home or self-care (01) ==
LOC: RT 14:24
PROVIDERS: ATTEND Internal Medicine Interventional Cardiology
DX: I10 Essential (primary) hypertension (principal)
CPT/HCPCS: 93306

== ENCOUNTER → 2019-07-30 | Outpatient (CLI) | payer BC ==
--- NOTE | 2019-07-31 11:54 | PRP ---
DATE OF PROCEDURE: 07/30/2019 PROCEDURE: Venous mapping ultrasound. INDICATION FOR PROCEDURE: Bilateral lower extremity edema with varicosities. RIGHT LOWER EXTREMITY: The right greater saphenous vein measures 10 mm in its maximum diameter. Significant reflux is noted in the right greater saphenous vein with maximum reflux of 4.8 seconds. The right small saphenous vein measures 6 mm in its maximum diameter. Significant reflux is also noted in the right SSV with maximum reflux greater than 4.6 seconds. There is no evidence of deep vein thrombosis in the right lower extremity. LEFT LOWER EXTREMITY: The left greater saphenous vein measures 9 mm in its maximum diameter. Significant reflux is noted in the left GSV with maximum reflux of 6.2 seconds. The left small saphenous vein measures 4 mm in its maximum diameter. Significant reflux is also noted in the left small saphenous vein with maximum reflux of 1.8 seconds. There is no evidence of deep venous thrombosis in the left lower extremity. IMPRESSION: 1. The right greater saphenous vein is severely dilated and displays pathological reflux. 2. The right small saphenous vein is severely dilated and displays pathological reflux. 3. The left greater saphenous vein is dilated and displays significant reflux. 4. The left small saphenous vein is normal sized but displaced pathological reflux. 5. There is no evidence of deep vein thrombosis in the bilateral lower extremities. 6. Bilateral lower extremity edema is visualized. RECOMMENDATIONS: Conservative measures with the use of compression stockings, leg elevation and exercise recommended if clinically indicated. JANAK RIOS D.O. DR: NIKKIE/salvatore JOB# [id number]
== END | disposition home or self-care (01) ==
LOC: RAD 14:56
PROVIDERS: ATTEND Internal Medicine Interventional Cardiology
DX: I72.8 Aneurysm of other specified arteries (principal); E78.2 Mixed hyperlipidemia; R60.0 Localized edema
CPT/HCPCS: 93970